=== PATIENT | male | born 1970 ===

== ENCOUNTER 2022-10-13 15:01 | Emergency (ER) | payer OTHER ==
[~2022-10-13] VITALS: Ht 172.7 cm; Wt 90.7 kg
== END 2022-10-13 15:57 | disposition home or self-care (01) ==
LOC: ER 15:01
DX: T15.02XA Foreign body in cornea, left eye, initial encounter (principal); Z88.8 Allergy status to other drugs, medicaments and biological substances
CPT/HCPCS: 70480; 99283-25; A9270